=== PATIENT | female | born 1970 | race Caucasian/White ===

== ENCOUNTER 2018-09-25 08:56 | Emergency (ER) | payer OTHER ==
[~2018-09-25] VITALS: Ht 157.5 cm; Wt 86.4 kg
[~2018-09-25 08:56] MED LIST: CYCL10 PO; HYDR25TA PO; HYDR50CA10 PO; LISI-660 PO; OMEP20 PO; RANI150T7 PO; SERT50TA12 PO; SIMV-261 PO
[2018-09-25 09:40] VITALS: BP 154/91
== END 2018-09-25 09:51 | disposition home or self-care (01) ==
LOC: EMS 08:58
DX: N63.0 Unspecified lump in unspecified breast (principal); F41.9 Anxiety disorder, unspecified; F32.9 Major depressive disorder, single episode, unspecified; I10 Essential (primary) hypertension; E78.00 Pure hypercholesterolemia, unspecified; F17.210 Nicotine dependence, cigarettes, uncomplicated; Z88.0 Allergy status to penicillin; Z79.899 Other long term (current) drug therapy

== ENCOUNTER 2022-05-22 15:01 | Emergency (ER) | payer OTHER ==
[~2022-05-22] VITALS: Ht 160 cm; Wt 90.9 kg
[~2022-05-22 15:01] MED LIST changes: +CYCL-448 PO; -CYCL10 PO; -HYDR25TA PO; +HYDR25TA2 PO; -HYDR50CA10 PO; +HYDR50CA7 PO; -LISI-660 PO; +LISI-892 PO; +SERT-158 PO; -SERT50TA12 PO
[2022-05-22 18:20] LABS: EOSINOPHILS % (AUTO) 3.3 % (1.0-6.0); HEMATOCRIT 41.7 % (36-46); HEMOGLOBIN 14.2 g/dL (12.0-16.0); LYMPHOCYTES # (AUTO) 3.3 K/uL (1.0-4.8); LYMPHOCYTES % (AUTO) 37.9 % (22.0-44.0); MEAN CORPUSCULAR HEMOGLOBIN 30.1 pg (26.0-34.0); MEAN CORPUSCULAR HGB CONC 33.9 G/dL (31.0-37.0); MEAN CORPUSCULAR VOLUME 89 fL (80-100); MONOCYTES # (AUTO) 0.6 K/uL (0.1-1.0); MONOCYTES % (AUTO) 7.3 % (2.0-9.0); NEUTROPHILS # (AUTO) 4.4 K/uL (1.8-7.7); NEUTROPHILS % (AUTO) 50.5 % (40.0-70.0); PLATELET COUNT (AUTO) 291 K/uL (150-450); RED BLOOD CELL COUNT(AUTO) 4.71 MIL/uL (4.00-5.20); RED CELL DISTRIBUTION WIDTH 13.3 % (11.5-14.5)
[2022-05-22 18:31] LABS: CALCIUM, TOTAL 9.4 mg/dL (8.8-10.5); CREATININE 0.97 mg/dL (0.60-1.30); POTASSIUM 3.6 mmol/L (3.5-5.1)
[2022-05-22 20:07] VITALS: BP 141/80
== END 2022-05-22 20:09 | disposition home or self-care (01) ==
LOC: EMS 15:03
DX: R51.9 Headache, unspecified (principal); F41.9 Anxiety disorder, unspecified; F32.A Depression, unspecified; E78.00 Pure hypercholesterolemia, unspecified; I10 Essential (primary) hypertension; F17.210 Nicotine dependence, cigarettes, uncomplicated; Z88.0 Allergy status to penicillin; Z98.890 Other specified postprocedural states
CPT/HCPCS: 70450; 72125; 80048; 85025; 99284

== ENCOUNTER 2024-04-14 18:24 | Emergency (ER) | payer OTHER ==
[~2024-04-14] VITALS: Ht 160 cm; Wt 90.9 kg
[2024-04-14 18:43] VITALS: BP 154/79; PULSE 80; RESP 18; TEMP 97.9; O2SAT 99
[2024-04-14 19:43] LABS: BASOPHILS % (AUTO) 0.6 % (0.0-2.0); EOSINOPHILS % (AUTO) 5.1 % (1.0-6.0); HEMATOCRIT 38.9 % (36-46); HEMOGLOBIN 13.7 g/dL (12.0-16.0); LYMPHOCYTES # (AUTO) 2.8 K/uL (1.0-4.8); LYMPHOCYTES % (AUTO) 30.6 % (22.0-44.0); MEAN CORPUSCULAR HEMOGLOBIN 31.5 pg (26.0-34.0); MEAN CORPUSCULAR HGB CONC 35.3 G/dL (31.0-37.0); MEAN CORPUSCULAR VOLUME 89 fL (80-100); MONOCYTES # (AUTO) 0.6 K/uL (0.1-1.0); MONOCYTES % (AUTO) 6.1 % (2.0-9.0); NEUTROPHILS # (AUTO) 5.3 K/uL (1.8-7.7); NEUTROPHILS % (AUTO) 57.6 % (40.0-70.0); PLATELET COUNT (AUTO) 303 K/uL (150-450); RED BLOOD CELL COUNT(AUTO) 4.36 MIL/uL (4.00-5.20); RED CELL DISTRIBUTION WIDTH 12.9 % (11.5-14.5); WHITE BLOOD COUNT (AUTO) 9.1 K/uL (4.5-11.0)
[2024-04-14 19:44] LABS: APPEARANCE,URINE CLEAR (CLEAR); BILIRUBIN,URINE NEGATIVE (NEGATIVE); COLOR,URINE COLORLESS (YELLOW); GLUCOSE, URINE (UA) NEGATIVE (NEGATIVE); KETONES,URINE NEGATIVE (NEGATIVE); LEUKOCYTE ESTERASE ,URINE NEGATIVE (NEGATIVE); NITRATE,URINE NEGATIVE (NEGATIVE); OCCULT BLOOD,URINE TRACE (NEGATIVE); PH,URINE 6.5 (5.0-8.0); PROTEIN,URINE NEGATIVE (NEGATIVE); SPECIFIC GRAVITIY, URINE 1.009 (1.003-1.030); UROBILINOGEN,URINE <=1.0 mg/dL (<=1.0)
[2024-04-14 19:50] LABS: ANION GAP 8 mmol/L (8-16); CALCIUM, TOTAL 9.3 mg/dL (8.8-10.5); CARBON DIOXIDE 30 mmol/L (22-29); CHLORIDE 98 mmol/L (98-107); CREATININE 0.93 mg/dL (0.60-1.30); GLOMERULAR FILTR. RATE CALC > 60 mL/min (>60); GLUCOSE,RANDOM 135 mg/dL (70-110); POTASSIUM 3.2 mmol/L (3.5-5.1); SODIUM SERUM 136 mmol/L (136-145); UREA NITROGEN, BLOOD 9 mg/dL (7-18)
[2024-04-14 19:55] LABS: ALANINE AMINOTRANSFERASE 39 U/L (12-78); ALBUMIN 3.4 g/dL (3.4-5.0); ALKALINE PHOSPHATASE 100 U/L (46-116); ASPARTATE AMINOTRANSFERASE 29 U/L (15-37); BILIRUBIN,TOTAL 0.3 mg/dL (0.1-1.0); LIPASE 27 U/L (16-77)
[2024-04-14 19:55] LABS: BACTERIA,URINE Few /HPF (None Seen); SQUAMOUS EPITHELIAL CELL,UR Rare /LPF (None Seen); WBC,URINE None Seen /HPF (0-5)
[2024-04-14 19:57] LABS: TROPONIN I-HIGH SENSITIVITY 28 ng/L (<51)
[2024-04-14] MEDS ORDERED: HYDR-4062 PO (21:06)
[2024-04-14] MEDS ORDERED: METH-659 PO (21:06)
[2024-04-14] MEDS ORDERED: IBUP-1554 PO (21:06)
[2024-04-14] MEDS: HYDROCODONE/ACETAMINOPHEN 5-325 MG TABLET PO ONE (21:10)
== END 2024-04-14 21:16 | disposition home or self-care (01) ==
LOC: EMS 18:24
DX: R07.89 Other chest pain (principal); M54.6 Pain in thoracic spine; E87.6 Hypokalemia; I10 Essential (primary) hypertension; E78.00 Pure hypercholesterolemia, unspecified; F32.A Depression, unspecified; F41.9 Anxiety disorder, unspecified; F17.210 Nicotine dependence, cigarettes, uncomplicated; Z88.0 Allergy status to penicillin; Z79.899 Other long term (current) drug therapy
CPT/HCPCS: 76700; 80048; 80076; 81001; 83690; 84484; 85025; 99284

== ENCOUNTER → 2024-06-17 | Emergency (ER) | payer OTHER ==
[~2024-06-17] VITALS: Ht 152.4 cm; Wt 100.0 kg
[~2024-06-17] MED LIST changes: +CLIN-26 PO; -CYCL-448 PO; +HYDR-4062 PO; +IBUP-1554 PO; +KETOROLAC TROMETHAMINE 30 MG/ML VIAL IVP ONE; +METH-659 PO; +OMEP-148 PO; -OMEP20 PO; -RANI150T7 PO; +SULF-261 PO
[2024-06-17 18:50] LABS: BASOPHILS % (AUTO) 0.6 % (0.0-2.0); HEMATOCRIT 41.5 % (36-46); LYMPHOCYTES # (AUTO) 2.7 K/uL (1.0-4.8); LYMPHOCYTES % (AUTO) 24.1 % (22.0-44.0); MEAN CORPUSCULAR HEMOGLOBIN 30.4 pg (26.0-34.0); MEAN CORPUSCULAR HGB CONC 33.8 G/dL (31.0-37.0); MEAN CORPUSCULAR VOLUME 90 fL (80-100); MONOCYTES # (AUTO) 0.8 K/uL (0.1-1.0); MONOCYTES % (AUTO) 6.8 % (2.0-9.0); NEUTROPHILS # (AUTO) 7.3 K/uL (1.8-7.7); NEUTROPHILS % (AUTO) 64.5 % (40.0-70.0); PLATELET COUNT (AUTO) 325 K/uL (150-450); RED BLOOD CELL COUNT(AUTO) 4.61 MIL/uL (4.00-5.20); WHITE BLOOD COUNT (AUTO) 11.4 K/uL (4.5-11.0)
[2024-06-17 18:52] LABS: ANION GAP 5 mmol/L (8-16); CALCIUM, TOTAL 9.7 mg/dL (8.8-10.5); CARBON DIOXIDE 33 mmol/L (22-29); CHLORIDE 102 mmol/L (98-107); CREATININE 0.89 mg/dL (0.60-1.30); GLOMERULAR FILTR. RATE CALC > 60 mL/min (>60); GLUCOSE,RANDOM 123 mg/dL (70-110); POTASSIUM 3.6 mmol/L (3.5-5.1); SODIUM SERUM 140 mmol/L (136-145); UREA NITROGEN, BLOOD 12 mg/dL (7-18)
[2024-06-17 19:02] LABS: C-REACTIVE PROTEIN QUANT 1.02 mg/dL (0.00-0.30)
[2024-06-17 19:05] LABS: ERYTHROCYTE SEDIMENTATION RATE 13 MM/HR (0-30)
[2024-06-17 22:00] VITALS: TEMP 98.4
[2024-06-17] MEDS: SODIUM CHLORIDE 0.9% 1,000 ML IV ONE (22:44)
[2024-06-17] MEDS: CLINDAMYCIN 600 MG/D5% WATER 50 ML IV ONE (22:44)
[2024-06-17] MEDS: ACETAMINOPHEN 500 MG TABLET PO ONE (22:45)
[2024-06-17] MEDS: KETOROLAC TROMETHAMINE 15 MG/ML VIAL IVP ONE (22:45)
[2024-06-17] MEDS: VANCOMYCIN 1.25 GM/WATER(PEG) 250 ML IV ONE (23:09)
[2024-06-18 00:30] VITALS: BP 144/78; PULSE 88; RESP 18; O2SAT 97
== END | disposition still patient (30) ==
LOC: EMS 16:33 → CANBEDREQ 23:33
DX: L03.116 Cellulitis of left lower limb (principal); I10 Essential (primary) hypertension; E78.00 Pure hypercholesterolemia, unspecified; F17.210 Nicotine dependence, cigarettes, uncomplicated; Z88.0 Allergy status to penicillin; Z79.899 Other long term (current) drug therapy
CPT/HCPCS: 99284; 96365; 96367; 96375; 80048; 83605; 85025; 85651; 86140; 87040; 36415; J1885; J3490 ×2; J7030

== ENCOUNTER 2024-08-03 12:25 | Emergency (ER) | payer OTHER ==
[~2024-08-03] VITALS: Ht 162.6 cm; Wt 100.0 kg
[~2024-08-03 12:25] MED LIST changes: -HYDR-4062 PO; -HYDR50CA7 PO; -IBUP-1554 PO; -KETOROLAC TROMETHAMINE 30 MG/ML VIAL IVP ONE; -METH-659 PO; -OMEP-148 PO; -SERT-158 PO; -SIMV-261 PO
[2024-08-03 12:32] VITALS: TEMP 98.2
[2024-08-03] MEDS ORDERED: ACET-2247 PO (12:35)
[2024-08-03 13:18] LABS: BASOPHILS % (AUTO) 0.7 % (0.0-2.0); EOSINOPHILS % (AUTO) 5.5 % (1.0-6.0); HEMATOCRIT 39.8 % (36-46); HEMOGLOBIN 13.4 g/dL (12.0-16.0); LYMPHOCYTES # (AUTO) 3.3 K/uL (1.0-4.8); LYMPHOCYTES % (AUTO) 32.9 % (22.0-44.0); MEAN CORPUSCULAR HEMOGLOBIN 29.9 pg (26.0-34.0); MEAN CORPUSCULAR HGB CONC 33.8 G/dL (31.0-37.0); MEAN CORPUSCULAR VOLUME 89 fL (80-100); MONOCYTES # (AUTO) 0.7 K/uL (0.1-1.0); MONOCYTES % (AUTO) 7.4 % (2.0-9.0); NEUTROPHILS # (AUTO) 5.3 K/uL (1.8-7.7); NEUTROPHILS % (AUTO) 53.5 % (40.0-70.0); PLATELET COUNT (AUTO) 302 K/uL (150-450); RED BLOOD CELL COUNT(AUTO) 4.49 MIL/uL (4.00-5.20); RED CELL DISTRIBUTION WIDTH 13.3 % (11.5-14.5); WHITE BLOOD COUNT (AUTO) 9.9 K/uL (4.5-11.0)
[2024-08-03 13:24] LABS: ANION GAP 4 mmol/L (8-16); CARBON DIOXIDE 31 mmol/L (22-29); CHLORIDE 102 mmol/L (98-107); GLOMERULAR FILTR. RATE CALC > 60 mL/min (>60); GLUCOSE,RANDOM 131 mg/dL (70-110); POTASSIUM 3.4 mmol/L (3.5-5.1); SODIUM SERUM 137 mmol/L (136-145); UREA NITROGEN, BLOOD 12 mg/dL (7-18)
[2024-08-03 13:30] LABS: ALBUMIN 3.2 g/dL (3.4-5.0); BILIRUBIN,DIRECT 0.1 mg/dL (0.00-0.20); BILIRUBIN,TOTAL 0.4 mg/dL (0.1-1.0); TOTAL PROTEIN, SERUM 6.6 g/dL (6.4-8.2)
[2024-08-03 13:32] LABS: TROPONIN I-HIGH SENSITIVITY 23 ng/L (<51)
[2024-08-03 14:33] LABS: PROTHROMBIN TIME 10.2 SEC (9.4-11.6)
[2024-08-03] MEDS: SODIUM CHLORIDE 0.9% 1,000 ML IV ONE (15:16)
[2024-08-03 17:25] VITALS: BP 128/86; PULSE 84; RESP 16; O2SAT 98
[2024-08-03 17:28] LABS: APPEARANCE,URINE CLEAR (CLEAR); BILIRUBIN,URINE NEGATIVE (NEGATIVE); COLOR,URINE COLORLESS (YELLOW); GLUCOSE, URINE (UA) NEGATIVE (NEGATIVE); KETONES,URINE NEGATIVE (NEGATIVE); LEUKOCYTE ESTERASE ,URINE NEGATIVE (NEGATIVE); NITRATE,URINE NEGATIVE (NEGATIVE); OCCULT BLOOD,URINE NEGATIVE (NEGATIVE); PH,URINE 7.5 (5.0-8.0); PROTEIN,URINE NEGATIVE (NEGATIVE); SPECIFIC GRAVITIY, URINE 1.005 (1.003-1.030); UROBILINOGEN,URINE <=1.0 mg/dL (<=1.0)
== END 2024-08-03 17:43 | disposition home or self-care (01) ==
LOC: EMS 12:26
DX: R42 Dizziness and giddiness (principal); R21 Rash and other nonspecific skin eruption; R20.0 Anesthesia of skin; I10 Essential (primary) hypertension; E78.00 Pure hypercholesterolemia, unspecified; F32.A Depression, unspecified; F41.9 Anxiety disorder, unspecified; F17.210 Nicotine dependence, cigarettes, uncomplicated; Z88.0 Allergy status to penicillin; Z79.899 Other long term (current) drug therapy
CPT/HCPCS: 99285; 96360; 71045; 80048; 80076; 81003; 82550; 83880; 84484; 85025; 85610; 85730; 36415; 93005; J7030

== ENCOUNTER 2024-11-10 13:50 | Emergency (ER) | payer OTHER ==
[~2024-11-10] VITALS: Ht 162.6 cm; Wt 97.7 kg
[~2024-11-10 13:50] MED LIST changes: +ACET-2247 PO; -CLIN-26 PO; -SULF-261 PO
[2024-11-10 14:05] VITALS: TEMP 97.9
[2024-11-10] MEDS ORDERED: LOSA-382 PO (14:10)
[2024-11-10 15:20] LABS: PLATELET COUNT (AUTO) 285 K/uL (150-450); RED BLOOD CELL COUNT(AUTO) 4.38 MIL/uL (4.00-5.20); RED CELL DISTRIBUTION WIDTH 13.4 % (11.5-14.5); WHITE BLOOD COUNT (AUTO) 8.4 K/uL (4.5-11.0)
[2024-11-10] MEDS: ONDANSETRON 4 MG TABLET PO ONE (15:21)
[2024-11-10] MEDS: ACETAMINOPHEN 500 MG TABLET PO ONE (15:21)
[2024-11-10] MEDS: MECLIZINE HCL 25 MG TABLET PO ONE (15:21)
[2024-11-10 15:26] LABS: CALCIUM, TOTAL 8.8 mg/dL (8.8-10.5); CREATININE 1.06 mg/dL (0.60-1.30); GLOMERULAR FILTR. RATE CALC 54 mL/min (>60); GLUCOSE,RANDOM 106 mg/dL (70-110); SODIUM SERUM 138 mmol/L (136-145); UREA NITROGEN, BLOOD 9 mg/dL (7-18)
[2024-11-10 15:34] LABS: TROPONIN I-HIGH SENSITIVITY 23 ng/L (<51)
[2024-11-10] MEDS ORDERED: ONDA-104 PO (16:44)
[2024-11-10] MEDS ORDERED: ACET-66 PO (16:44)
[2024-11-10] MEDS ORDERED: MECL-134 PO (16:44)
[2024-11-10 17:00] VITALS: BP 111/53; PULSE 71; RESP 18; O2SAT 98
== END 2024-11-10 18:02 | disposition home or self-care (01) ==
LOC: EMS 13:55
DX: R42 Dizziness and giddiness (principal); R07.89 Other chest pain; F41.9 Anxiety disorder, unspecified; F32.A Depression, unspecified; E78.00 Pure hypercholesterolemia, unspecified; F17.210 Nicotine dependence, cigarettes, uncomplicated; I10 Essential (primary) hypertension; Z98.890 Other specified postprocedural states; Z79.899 Other long term (current) drug therapy; Z88.0 Allergy status to penicillin
CPT/HCPCS: 99285; 71045; 80048; 84484; 85025; 36415; 93005; Q0162

== ENCOUNTER 2024-11-22 11:40 | Emergency (ER) | payer OTHER ==
[~2024-11-22] VITALS: Ht 162.6 cm; Wt 98.0 kg
[~2024-11-22 11:40] MED LIST changes: +ACET-66 PO; +LOSA-382 PO; +MECL-134 PO; +ONDA-104 PO
[2024-11-22 11:53] VITALS: TEMP 98.1
[2024-11-22] MEDS: IBUPROFEN 600 MG TABLET PO ONE (12:17)
[2024-11-22] MEDS: DOXYCYCLINE HYCLATE 100 MG TABLET PO ONE (12:17)
[2024-11-22] MEDS: ACETAMINOPHEN 500 MG TABLET PO ONE (12:17)
[2024-11-22] MEDS ORDERED: IBUP-1492 PO (12:23)
[2024-11-22] MEDS ORDERED: ACET-3385 PO (12:23)
[2024-11-22] MEDS ORDERED: DOXY-354 PO (12:23)
[2024-11-22 12:30] VITALS: BP 138/86; PULSE 85; RESP 16; O2SAT 99
== END 2024-11-22 12:31 | disposition home or self-care (01) ==
LOC: EMS 11:40
DX: L03.114 Cellulitis of left upper limb (principal); M25.532 Pain in left wrist; F41.9 Anxiety disorder, unspecified; F32.A Depression, unspecified; E78.00 Pure hypercholesterolemia, unspecified; I10 Essential (primary) hypertension; F17.210 Nicotine dependence, cigarettes, uncomplicated; Z79.899 Other long term (current) drug therapy; Z98.890 Other specified postprocedural states; Z88.0 Allergy status to penicillin
CPT/HCPCS: 99284; 73110-TC; Z7502; Z7610

== ENCOUNTER 2024-12-16 02:00 | Emergency (ER) | payer OTHER ==
[~2024-12-16] VITALS: Ht 165.1 cm; Wt 90.0 kg
[~2024-12-16 02:00] MED LIST changes: +ACET-3385 PO; +DOXY-354 PO; +IBUP-1492 PO
[2024-12-16 02:44] VITALS: TEMP 97.7
[2024-12-16 03:12] LABS: PLATELET COUNT (AUTO) 327 K/uL (150-450); RED BLOOD CELL COUNT(AUTO) 4.50 MIL/uL (4.00-5.20); RED CELL DISTRIBUTION WIDTH 13.3 % (11.5-14.5); WHITE BLOOD COUNT (AUTO) 12.5 K/uL (4.5-11.0)
[2024-12-16] MEDS: ONDANSETRON HCL 4 MG/2 ML VIAL IVP ONE (03:14)
[2024-12-16] MEDS: KETOROLAC TROMETHAMINE 30 MG/ML VIAL IVP ONE (03:14)
[2024-12-16 03:18] LABS: TOTAL PROTEIN, SERUM 7.5 g/dL (6.4-8.2)
[2024-12-16 03:23] LABS: TROPONIN I-HIGH SENSITIVITY 5 ng/L (<51)
[2024-12-16 03:35] LABS: ASPARTATE AMINOTRANSFERASE < 5 U/L (15-37)
[2024-12-16 03:43] LABS: CALCIUM, TOTAL 9.6 mg/dL (8.8-10.5); CREATININE 0.65 mg/dL (0.60-1.30); GLOMERULAR FILTR. RATE CALC > 60 mL/min (>60); SODIUM SERUM 133 mmol/L (136-145); UREA NITROGEN, BLOOD 8 mg/dL (7-18)
[2024-12-16 05:15] VITALS: BP 141/67; PULSE 77; RESP 17; O2SAT 96
[2024-12-16] MEDS: FentaNYL CITRATE PF 100 MCG/2 ML VIAL IVP ONE (05:22)
== END 2024-12-16 05:47 | disposition home or self-care (01) ==
LOC: EMS 02:02
DX: K80.20 Calculus of gallbladder without cholecystitis without obstruction (principal); R10.11 Right upper quadrant pain; F17.210 Nicotine dependence, cigarettes, uncomplicated; F41.9 Anxiety disorder, unspecified; F32.A Depression, unspecified; E78.00 Pure hypercholesterolemia, unspecified; I10 Essential (primary) hypertension; Z79.899 Other long term (current) drug therapy; Z88.0 Allergy status to penicillin; Z98.890 Other specified postprocedural states
CPT/HCPCS: 99285; 96374; 76700; 96375; 80048; 80076; 83690; 84484; 85025; 36415; 93005; J1885; J3010; J2405